=== PATIENT | male | born 1945 | race Caucasian/White ===

== ENCOUNTER 2017-03-22 20:19 | Emergency (ER) | payer OTHER ==
[~2017-03-22] VITALS: Ht 152.4 cm; Wt 100.5 kg
[~2017-03-22 20:19] MED LIST: ACTOS30 MG PO; AMLODIPINE BESY10 MG PO; AMLODIPINE BESYL5 MG PO; BACTERICIN30 GM TP; BENTYL20 MG PO; CIPRO500 MG PO; CLEOCIN300 MG PO; FLOMAX0.4 MG PO; FUROSEMIDE20 MG PO; GLIPIZIDE10 MG PO; GLUCOTROL10 MG PO; JANUVIA100 MG PO; LISINOPRIL20 MG PO; LOMOTIL TABLET1 EACH PO; METFORMIN HCL1000 MG PO; PROMETHAZINE HC25 M1 PO; SIMVASTATIN10 MG PO; ST. JOSEPH ASPI81 MG PO; TAMSULOSIN HCL0.4 MG PO; ULTRACET1 TABLET PO; ULTRAM50 MG PO; VALACYCLOVIR1000 MG PO; VALSARTAN80 MG PO; ZANTAC75 M1 PO
[2017-03-22 22:07] LABS: HEMATOCRIT 42.7 % (38.0-50.0); MCH 31.1 PG (29.0-34.0); MCHC 34.2 G/DL (30.0-36.0); PLATELET COUNT 202 K/uL (156-360); RBC DIS.WIDTH-SD 42.8 % (39-53); RED BLOOD COUNT 4.69 M/uL (4.00-5.50); WHITE BLOOD COUNT 4.8 K/uL (4.1-10.2)
[2017-03-22 22:23] LABS: CHLORIDE 102 mEq/L (99-109); POTASSIUM 4.2 mEq/L (3.7-5.4); SODIUM 134 mEq/L (136-147)
[2017-03-22 22:26] LABS: GLUCOSE 202 mg/dL (70-99)
[2017-03-22 22:27] LABS: ANION GAP 9 MEQ/L (2-14)
[2017-03-22 22:28] LABS: TOTAL BILIRUBIN 0.6 mg/dL (0.0-1.0)
[2017-03-22 22:29] LABS: ALKALINE PHOSPHATASE 94 IU/L (3-129); GFR ESTIMATE (CALCULATED) > 59 mL/min/
[2017-03-22 22:30] LABS: UREA NITROGEN (BUN) 22 mg/dL (9-23)
[2017-03-23] MEDS ORDERED: NORVASC5 MG PO (01:10)
[2017-03-23] MEDS ORDERED: SIMVASTATIN10 MG PO (01:10)
[2017-03-23] MEDS ORDERED: TAMSULOSIN HCL0.4 MG PO (01:10)
[2017-03-23] MEDS ORDERED: VALSARTAN80 MG PO (01:10)
[2017-03-23] MEDS ORDERED: LASIX20 MG PO (01:10)
[2017-03-23] MEDS ORDERED: GLIPIZIDE10 MG PO (01:10)
[2017-03-23] MEDS ORDERED: LISINOPRIL20 MG PO (01:10)
[2017-03-23] MEDS ORDERED: JANUVIA100 MG PO (01:10)
[2017-03-23 01:13] VITALS: BP 139/77
== END 2017-03-23 01:36 | disposition home or self-care (01) ==
LOC: EME 20:19
DX: M79.89 Other specified soft tissue disorders (principal); M79.604 Pain in right leg; M79.605 Pain in left leg; I10 Essential (primary) hypertension; E11.9 Type 2 diabetes mellitus without complications; Z79.84 Long term (current) use of oral hypoglycemic drugs; Z79.82 Long term (current) use of aspirin
CPT/HCPCS: 71020; 80053; 83880; 85027; 93970; 99281; 99284

== ENCOUNTER 2018-03-22 06:14 | Emergency (ER) | payer OTHER ==
[~2018-03-22] VITALS: Ht 182.9 cm; Wt 109.1 kg
[~2018-03-22 06:14] MED LIST changes: +LASIX20 MG PO; +NORVASC5 MG PO
[2018-03-22 06:52] LABS: HEMATOCRIT 37.6 % (38.0-50.0); HEMOGLOBIN 13.2 G/DL (12.5-16.6); MCH 32.9 PG (29.0-34.0); MCHC 35.1 G/DL (30.0-36.0); MCV 93.8 FL (86-99); PLATELET COUNT 118 K/uL (156-360); RBC DIS.WIDTH-CV 13.5 % (11.8-14.6); RBC DIS.WIDTH-SD 46.3 % (39-53); RED BLOOD COUNT 4.01 M/uL (4.00-5.50)
[2018-03-22 07:14] LABS: CHLORIDE 103 MEQ/L (99-109); CREATININE 1.3 MG/DL (0.6-1.3); GFR ESTIMATE (CALCULATED) 58 mL/min/ (58.99-99999); GLUCOSE 186 mg/dL (70-99); SODIUM 136 MEQ/L (136-147); UREA NITROGEN (BUN) 24 mg/dL (9-23)
[2018-03-22 07:24] LABS: POTASSIUM 3.4 MEQ/L (3.7-5.4)
[2018-03-22 07:58] LABS: APPEARANCE SL.HAZY ((CLEAR)); BILIRUBIN NEGATIVE; BLOOD MODERATE; COLOR YELLOW ((YELLOW)); GLUCOSE (STRIP) 150; KETONES 5; LEUKOCYTES LARGE; NITRITE NEGATIVE; PROTEIN (STRIP) 30; SPECIFIC GRAVITY 1.013 (1.000-1.030); UROBILINOGEN 0.2 MG/DL (0.2-1.0)
[2018-03-22 08:01] LABS: BACTERIA RARE /HPF; EPITHELIAL CELLS RARE /HPF; MUCUS TRACE /LPF; RED BLOOD CELLS 20-30 /HPF (0-5); UCUL ADDED? YES; WHITE BLOOD CELLS 30-40 /HPF (0-5)
[2018-03-22] MEDS ORDERED: CIPRO500 MG PO (08:47)
[2018-03-22] MEDS ORDERED: ZOFRAN4 MG PO (08:47)
[2018-03-22] MEDS ORDERED: BENTYL20 MG PO (08:47)
[2018-03-22 09:05] VITALS: BP 98/51
== END 2018-03-22 09:29 | disposition home or self-care (01) ==
LOC: EME 06:14
DX: K52.9 Noninfective gastroenteritis and colitis, unspecified (principal); N39.0 Urinary tract infection, site not specified; D72.819 Decreased white blood cell count, unspecified; E11.40 Type 2 diabetes mellitus with diabetic neuropathy, unspecified; Z79.84 Long term (current) use of oral hypoglycemic drugs; I10 Essential (primary) hypertension; Z79.82 Long term (current) use of aspirin; Z88.2 Allergy status to sulfonamides
CPT/HCPCS: 80048; 81003; 85027; 87086; J0696; J1885; J2405; J7030